=== PATIENT | female | born 1990 | race African-American/Black ===

== ENCOUNTER 2017-10-06 06:00 | Inpatient (IN) ==
[2017-10-06] MEDS ORDERED: miSOPROStol 25 MCG TABLET VG PRN (06:17)
[2017-10-06] MEDS ORDERED: Famotidine 20 MG/2 ML VIAL IVP PRN (06:17)
[2017-10-06] MEDS ORDERED: *HR* Nalbuphine 10 MG/ML AMPUL IVP PRN (06:17)
[2017-10-06] MEDS ORDERED: Ondansetron 4 MG/2 ML VIAL IVP PRN (06:17)
[2017-10-06] MEDS ORDERED: Metoclopramide 10 MG/2 ML VIAL IVP PRN (06:17)
[2017-10-06] MEDS ORDERED: Naloxone 0.4 MG/ML INJ IVP PRN (06:17)
[2017-10-06] MEDS ORDERED: Ringers Solution, Lactated 1,000 ML IVC SCH (06:30)
[2017-10-06 06:35] LABS: Basophils # 0.1 K/mcL (0.0-0.2); Basophils % 0.7 %; Eosinophils # 0.4 K/mcL (0.0-0.6); Hematocrit 37.7 % (35.3-44.9); Hemoglobin 12.6 g/dL (11.5-15.4); Immature Granulocytes % 2.3 % (0-4); Lymphocytes # 2.2 K/mcL (0.6-4.6); Lymphocytes % 23.6 %; Mean Corpuscular HGB Conc 33.4 g/dL (31.6-35.5); Mean Corpuscular Hemoglobin 30.4 pg (28.0-33.3); Mean Corpuscular Volume 91.1 fL (83.0-100.0); Monocytes # 0.8 K/mcL (0.0-1.3); Monocytes % 8.4 %; Neutrophils # 5.6 K/mcL (1.6-8.9); Platelet Count 214 K/mcL (140-400); Red Blood Count 4.14 M/mcL (3.82-4.97); Red Cell Distribution Width 14.4 % (11.5-14.5)
[2017-10-06 06:53] LABS: Amphetamine Screen,Urine Negative ng/mL (Cutoff=1000); Barbiturate Screen,Urine Negative ng/mL (Cutoff=200); Benzodiazepines Screen,Urine Negative ng/mL (Cutoff=200); Cannabinoid Screen,Urine Positive ng/mL (Cutoff = 50); Cocaine Screen,Urine Negative ng/mL (Cutoff= 300); Opiate Screen,Urine Negative ng/mL (Cutoff=300); Phencyclidine Screen,Urine Negative ng/mL (Cutoff=25)
[2017-10-06] MEDS: miSOPROStol 25 MCG TABLET PO PRN ×2 (07:01→11:41)
--- NOTE | 2017-10-06 08:41 | OB/GYN History & Physical ---
Date of Encounter: 10/06/17 Time of Encounter: 08:28 Assessment and Plan (1) 40 weeks gestation of Current visit: Yes Status: Acute (2) Genital HSV Current visit: Yes Status: Acute Adequately treated with antiviral therapy No active lesions observed Qualifiers: Herpes simplex infection site: unspecified Qualified Code(s): A60.00 - Herpesviral infection of urogenital system, unspecified (3) complicated by subutex maintenance, antepartum Current visit: Yes Status: Acute Continue maintenance subutex dosage (4) Intrauterine Current visit: Yes Status: Acute Admit to L&D for induction of labor Labs-CBC and clot to hold Pain management plan- NCB GBS- Cytotec 50mcg PO x 1 Recheck in [address] Palomino is OB director operations broadcast and available as needed. (5) Intact amniotic membranes during in third trimester Current visit: Yes Status: Acute History of Present Illness Chief complaint: Elective IOL HPI: Ms. Colón is a 26 year old -[place] female at 40 weeks 1 day with an EDB of 10/05/17 dated by early ultrasound. She presents today for scheduled induction of labor for postdates. She endorses good movement and denies contractions, leakage of fluid, vaginal bleeding. Her complicated by diagnosis of HSV and narcotics addiction. She has been on Subutex throughout her centering group. She has seen Dr. Darden for care. Records are available electronically and have been reviewed. Labs: A+ GBS- Hep B- HIV- T. Palladium- GC/CL- HSV+ (On treatment since 36 weeks) Varicella immune Rubella immune Past Med Surg Social Fam HX - Past Medical History Medical history: no medical history Psychiatric history: no psych history - Past Surgical History Surgical History: other Additional surgical history: D&C - Social History Smoking Status: Former smoker Smokeless Tobacco Status: No Alcohol use: none Drug use: IV Drug Use - Family History Mother Living Status: Still Living Hx Family Cardiac Disorders: Yes (HTN) Obstetrical History - Pregnancies : 1 Para: 0 Term: 0 : 0 Ab's: 0 Livin Medications and Allergies Buprenorphine HCl [Subutex] 1 tab PO BID 10/06/17 [History] [id number]/Iron Fumarate/FA/Dss [ 19 Tablet] 1 tab PO DAILY 10/06/17 [ History] valACYclovir [Valtrex] 1 tab PO BID 10/06/17 [History] 3 Allergy/AdvReac Type Severity Reaction Status Date / Time No Known Allergies Allergy Verified 10/06/17 06:40 Review of System OB All systems PM: reviewed and no additional remarkable complaints except as stated Exam - Constitutional Constitutional: well developed, well nourished, no acute distress, average body habitus - HEENT HEENT: PERRL, Normocephaly, Mucus Membranes Moist - Neck Neck exam: full ROM - Lungs Respiratory exam: CTAB - Cardiovascular Cardiovascular exam: RRR, +S1, +S2 - Breasts Breast: bilateral: normal - Abdomen Abdomen: Present: bowel sounds normal, gravid, non tender - Extremities Extremities exam: normal capillary refill, normal inspection, pedal edema, radial pulses palpable and symmetrical Deep Tendon Reflex Grade: 2+ Normal - Vulva Vulva: bilateral: normal - Vagina Vagina: Present: normal moisture - Cervix Dilation: 2 (per RN) Effacement: 50 Station: 0 - Uterus Uterus exam: Present: normal size, normal contour - Anus/Rectum Anus/Rectum: Present: normal perianal skin Results Result Diagrams: 10/06/17 06:10 Abnormal lab results U Marijuana (THC) Screen Positive ng/mL (Cutoff = 50) H 10/06/17 06:00 All other labs normal. - VTE Reasons for not Prescribing Prophylaxis: Treatment not Indicated - Low risk for VTE
--- NOTE | 2017-10-06 11:57 | OB Labor Progress Note ---
Date of Encounter: 10/06/17 Time of Encounter: 11:55 Labor Progress Note - Subjective Subjective: Pt reports minimal discomfort with contractions. Rates them 1-2/10. - Cervix Cervix: 2/50/0 - Heart Tones Heart Tones: Baseline 135 Moderate variability Accelerations present 15x15 No decelerations FHR category I - [place]: Contractions few and palpate mild - Interventions Interventions: SVE Sawant bulb placed without difficulty - Plan Plan: Continue induction management Frequent position changes Anticipate
--- NOTE | 2017-10-06 15:57 | OB Labor Progress Note ---
Date of Encounter: 10/06/17 Time of Encounter: 15:53 Labor Progress Note - Subjective Subjective: Pt getting more uncomfortable. Rates contractions 4-5/10. - Cervix Cervix: 5-6/80/0 - Heart Tones Heart Tones: Baseline 140 Moderate variability Accelerations present 15x15 No decelerations FHR Category I - [place]: Contractions every 2-3 minutes and palpate strong - Interventions Interventions: Sawant bulb out SVE - Plan Plan: Continue induction management Consider AROM versus Pitocin May have epidural upon request Anticipate
--- NOTE | 2017-10-06 16:29 | OB Labor Progress Note ---
Date of Encounter: 10/06/17 Time of Encounter: 16:27 Labor Progress Note - Subjective Subjective: Patient remains uncomfortable with contractions. Not requesting epidural at this time. Rates contractions 4-5 out of 10 on pain scale. - Cervix Cervix: 6/80/0 - Heart Tones Heart Tones: Baseline 140 Moderate variability Accelerations present 15 x 15 No decelerations FHR category I - [place]: Contractions every 1-3 minutes and palpate strong - Interventions Interventions: SVE AROM-moderate amount of clear fluid - Plan Plan: Continue induction management Frequent position changes Anticipate
[2017-10-06] MEDS ORDERED: Epidural Premix (fent/bupiv) 110 ML EP SCH (18:00)
[2017-10-06] MEDS ORDERED: Bupivacaine-MPF 0.25% 10 ML VIAL ONE (18:02)
[2017-10-06] MEDS ORDERED: *HR* Ropivacaine/PF 0.2% 20 ML VIAL ONE (18:02)
[2017-10-06] MEDS ORDERED: Lidocaine -MPF 1% 5 ML AMPUL ONE (18:02)
[2017-10-06] MEDS ORDERED: *HR* FentaNYL (PF) 100 MCG/2 ML VIAL ONE (18:02)
[2017-10-06] MEDS ORDERED: Epidural Premix (fent/bupiv) 110 ML EP ONE (18:09)
[2017-10-06] MEDS ORDERED: Oxytocin 20 units/ LR 1000 mL 20 UNIT/1,000 ML BAG IVC SCH (18:15)
--- NOTE | 2017-10-06 19:31 | Anesthesia Evaluation PreOp ---
Date of Encounter: 10/06/17 Time of Encounter: 18:00 - Past History Planned Operation: SAMMIE Cardiac History: Denies any Significant Hx Pulmonary History: Denies Any Significant HX [employer] History: Denies Any Significant HX Other Medical History: Denies Any Significant HX Anesthesia History: No Prior Anesthetic Complications : No Test: Positive Alcohol Use: none Drug use: none, IV Drug Use Medications and Allergies Buprenorphine HCl [Subutex] 1 tab PO BID 10/06/17 [History] [id number]/Iron Fumarate/FA/Dss [ 19 Tablet] 1 tab PO DAILY 10/06/17 [ History] valACYclovir [Valtrex] 1 tab PO BID 10/06/17 [History] 3 Allergy/AdvReac Type Severity Reaction Status Date / Time No Known Allergies Allergy Verified 10/06/17 06:40 - Meds/Allergy Pre-op Review Medications Reviewed: Yes Allergies Reviewed: Yes Beta Blockers on Current Med List: Yes Anesthesia Results - Labs 10/06/17 06:10 Anesthesia Exam - HEENT Pupil (Motor): Pupils equal Mallampati: II Teeth: Normal Oral Opening: Greater than 3 - [employer] LOC: Oriented [employer] Motor: Normal RUE, Normal LUE, Normal RLE, Normal LLE, Normal Face [employer] Sensory: Normal: RUE, LUE, RLE, LLE, Face - Cardiac Rhythm: Regular Murmur: None JVD: No Carotid Bruit: No - Pulmonary Breath Sounds: bilateral Clear Respiratory Effort: Symmetrical Anesthesia Assess/Plan ASA Score: 1, 2 Modified Shonda Scale for Level of Consciousness: Cooperative, oriented, and tranquil Anesthetic Plan: MAC Autologous Blood: Yes Monitoring Plan: Standard Monitors
--- NOTE | 2017-10-06 19:36 | Anesthesia Procedures ---
Date of Encounter: 10/06/17 Time of Encounter: 18:00 Procedures: Anesthesia - Epidural/Spinal Patient ID/Chart reviewed: Yes Patient examined: Yes OB Eval: Gestational age: 40.1 OB Eval: : 1 OB Eval: Hx Para: 0 OB Eval: Contractions: Non-stressed pattern Consent Obtained: Yes Site Prep: Aseptic Technique, Sterile prep and drape, Povidone-Iodine 1% Patient position: upright Amount of Local Anesthetic used: 3 Touhy Needle Gauge: 18 Touhy Needle Depth (cm): 7 Catheter Depth at Skin (cm): 6 Test Dose (1.5% Lido + Epi): Volume given (mls): 3 Test Dose Result: Negative Loading Dose Administered: Thru Catheter Infusion Rate (mls/hr): [address]: Tegaderm, Tape Interspace Used: L4-L5 Loss of Resistance (CASSIDY): Yes Blood: No CSF: No Paresthesia: No Vitals + FHT's: stable throughout see nursing notes
--- NOTE | 2017-10-06 19:36 | OB Labor Progress Note ---
Date of Encounter: 10/06/17 Time of Encounter: 19:34 Labor Progress Note - Subjective Subjective: Patient comfortable with epidural. - Cervix Cervix: 6-7/80/0 - Heart Tones Heart Tones: Baseline 130 Moderate variability Accelerations present 15 x 15 Early decelerations HR category I - [place]: Contractions every 1-4 and palpate strong - Interventions Interventions: SVE - Plan Plan: Continue induction management Frequent position changes with peanut ball Start Pitocin and increase to adequate labor pattern per policy Anticipate vaginal delivery Dr. Palomino aware plan of care and agrees
--- NOTE | 2017-10-06 20:38 | OB Labor Progress Note ---
Date of Encounter: 10/06/17 Time of Encounter: 20:36 Labor Progress Note - Subjective Subjective: Patient uncomfortable with epidural. Requesting additional bolus. - Cervix Cervix: 9.5/100/+1 - Heart Tones Heart Tones: Baseline 130 Moderate variability Accelerations present 15x15 Prolonged decel prompting SVE FHR Category II - [place]: Contractions every 2-3 minutes and palpates strong - Interventions Interventions: SVE - Plan Plan: Continue induction management Mary sit x 1 hour Anticipate
[2017-10-06] MEDS ORDERED: Lidocaine/EPI 1:200k 2% PF 20 ML VIAL ONE (20:40)
--- NOTE | 2017-10-07 00:47 | OB/GYN Procedure Note ---
Delivery - Delivery Date: 10/07/17 Provider: Raegan William Intrapartum events: prolonged 2nd stage>2.5hr Delivery induction: steinberg, misoprostol Delivery augmentation: rupture of membranes, pitocin Delivery monitor: external FHT, external uterine Anesthesia: epidural Quantitated Blood Loss: 250 - Infant (s) A Infant Delivery Date: 10/07/17 Infant Delivery Time: 00:09 Presentation: vertex Position: ZEV Route of delivery: Gender: Female Viability: Viable Pounds: 7 Ounces: 12 Weight Gram: 3.525 kg at 1 minute: 8 at 5 mins: 9 Shoulder Dystocia: not encountered Specimens collected: cord blood Placenta: spontaneous Cord: 3 umbilical vessels - Repair Episiotomy: none Laceration Description: None - Complications Delivery complications: none Delivery comments: This is a 26-year-old G1 now P1 who is admitted for induction of labor. She progressed with Steinberg bulb, Cytotec, Pitocin augmentation and AROM to the second stage of labor. She pushed for about 2-1/2 hours. She delivered a viable, female , ZEV over an intact perineum. The infant was placed on the maternal abdomen where the mouth and nares were suctioned. No nuchal cord was identified and no shoulder dystocia was encountered. scores were 8 at 1 minute and 9 at 5 minutes. The infant weighed 7 lbs. 12 oz. The placenta delivered ([place]) spontaneously, intact with a three-vessel cord. Inspection revealed no perineal, sidewall or cervical lacerations. EBL was 250 mL. Placenta and umbilical artery blood gases were not sent. There were no consultations during the procedure. Mom and baby are her skin to skin following delivery. - Disposition Mom disposition: stable in LDR [place] disposition: stable in LDR
[2017-10-07] MEDS ORDERED: Benzocaine/Menthol 56 GM AEROSOL SPRAY TP PRN (02:08)
[2017-10-07] MEDS ORDERED: Oxytocin 20 units/ LR 1000 mL 20 UNIT/1,000 ML BAG IVC SCH (02:08)
[2017-10-07] MEDS ORDERED: Acetaminophen 325 MG TABLET PO PRN (02:08)
[2017-10-07] MEDS: Prenatal Vit/FA 1 EACH TABLET PO SCH (09:27)
[2017-10-07] MEDS: Ibuprofen 600 MG TABLET PO PRN ×2 (09:27→20:05)
[2017-10-07] MEDS: *HR* Buprenorphine HCl 8 MG TAB.SUBL SL SCH ×2 (09:28→20:05)
[2017-10-08] MEDS: Ibuprofen 600 MG TABLET PO PRN (07:51)
[2017-10-08] MEDS: *HR* Buprenorphine HCl 8 MG TAB.SUBL SL SCH (07:52)
[2017-10-08] MEDS: Prenatal Vit/FA 1 EACH TABLET PO SCH (07:52)
[2017-10-08 08:23] VITALS: BP 115/77
--- NOTE | 2017-10-08 09:15 | Discharge Summary ---
Date of Encounter: 10/08/17 Time of Encounter: 09:12 - Discharge Diagnosis (1) Vaginal delivery Priority: Primary Status: Acute Comments: Vital signs stable Pain well controlled with by mouth pain meds Tolerating regular diet Voiding independently Passing flatus, but no BM yet Lochia light Ambulating independently Discharge to guest today (2) Breast feeding status of mother Priority: Secondary Status: Acute Comments: Community resources provided - Discharge Medications Prescriptions: Ibuprofen [Motrin] 600 mg PO Q6HR PRN #30 tablet PRN Reason: Cramping Breast Pump [BREAST PUMP] 1 each .ROUTE AD #1 each Docusate [Colace] 100 mg PO BID #30 capsule Home Medications: Buprenorphine HCl [Subutex] 1 tab PO BID 10/06/17 [History] Vrp335/Iron Fumarate/FA/Dss [ 19 Tablet] 1 tab PO DAILY 10/06/17 [ History] valACYclovir [Valtrex] 1 tab PO BID 10/06/17 [History] Acetaminophen [Tylenol] 650 mg PO Q6HR PRN tablet 10/08/17 [Rx] Benzocaine/Menthol Allen [Dermoplast Allen] 1 appl TP QID PRN aerosol 10/08/17 [Rx] Breast Pump [BREAST PUMP] 1 each .ROUTE AD #1 each 10/08/17 [Rx] Docusate [Colace] 100 mg PO BID #30 capsule 10/08/17 [Rx] Ibuprofen [Motrin] 600 mg PO Q6HR PRN #30 tablet 10/08/17 [Rx] Allergies/Adverse Reactions: 3 Allergy/AdvReac Type Severity Reaction Status Date / Time No Known Allergies Allergy Verified 10/06/17 06:40 Data Procedures and tests throughout hospitalization: Laboratory Tests 10/06/17 10/06/17 06:00 06:10 WBC 9.2 RBC 4.14 Hgb 12.6 Hct 37.7 MCV 91.1 MCH 30.4 MCHC 33.4 RDW 14.4 Plt Count 214 MPV 11.0 Immature Gran % 2.3 Seg Neutrophils % 61.0 Lymphocytes % 23.6 Monocytes % 8.4 Eosinophils % 4.0 Basophils % 0.7 Neutrophils # 5.6 Lymphocytes # 2.2 Monocytes # 0.8 Eosinophils # 0.4 Basophils # 0.1 Urine Opiates Screen Negative Ur Barbiturates Screen Negative Ur Phencyclidine Scrn Negative Ur Amphetamines Screen Negative U Benzodiazepines Scrn Negative Urine Cocaine Screen Negative U Marijuana (THC) Screen Positive H Date of admission: 10/06/17 06:04 [facility] care physician: [facility] Consults: 10/07/17 02:08 Consult to Quality Auditor [CONS] Routine Comment: Vaginal delivery, consult needed Consult to Learning Administrator [CONS] Routine Reason for SW Consult: +drug screen/centering group Discharging clinician: Raegan William Anticipated date of discharge: 10/08/17 - Patient Status Disposition: Home, Self-Care Condition: Good Functional capacity at discharge: independent ambulation Overall status at discharge: patient is progressing back to baseline - Discharge Instructions Follow Up With: [facility],PCP [Primary Care Provider] - Julio Darden MD [Partnered Physician] - - Diet and Activity Activity: increase activity as tolerated Diet: regular diet Hospital Course Procedures: Vaginal delivery Reason for admission: induction of labor, IUP at term Delivery: Episiotomy: none Laceration: none Other procedures: none complications: none Discharge diagnosis: IUP at term delivered [place] baby: female Time Attestation: Total time spent providing and/or coordinating discharge services: Time Spent: Less than 30 minutes Exam - Constitutional Vitals: Temp Pulse Resp BP Pulse Ox 98.4 F 90 12 115/77 97 10/08/17 07:35 10/08/17 07:35 10/08/17 07:35 10/08/17 07:35 10/08/17 07:35 General appearance IM: A&O X 3 - Respiratory Respiratory exam: Present: CTAB - Cardiovascular Cardiovascular exam IM: Present: RRR, +S1, +S2 - GI/Abdominal GI/Abdominal exam IM: normal bowel sounds, no peritoneal signs - Rectal Rectal exam: deferred - External exam: swelling Uterus Position: 1 Finger Below Umbilicus, Midline - Extremities Exam Extremities exam IM: Present: normal capillary refill, normal inspection, pedal edema, radial pulses palpable and symmetrical - Neurological Exam Neurological exam: alert, CN II-XII intact, normal gait, oriented X3, reflexes normal, no focal deficits, strengths equal and symetr throughout - Psychiatric Additional comments: Patient denies history of anxiety or depression. Signs and symptoms of depression discussed with patient and she verbalizes understanding of when to call for help. - Other Additional findings: Breasts: Soft, nontender; nipples intact without erythema
== END 2017-10-08 09:50 | disposition home or self-care (01) | DRG 774 ==
LOC: 1NENULAB 06:04 → 1NENUOBS 10-07 03:26
PROVIDERS: ADMIT Obstetrics & Gynecology; ATTEND Obstetrics & Gynecology